=== PATIENT | male | born 2000 | race Caucasian/White ===

== ENCOUNTER 2024-06-04 20:01 | Emergency (ER) | payer BC ==
[2024-06-04 21:17] LABS: HEMATOCRIT 46.4 % (38.4-49.7); HEMOGLOBIN 16.8 g/dL (12.9-16.9); MEAN CORPUSCULAR HEMOGLOBIN 30.9 pg (31.6-35.5); MEAN CORPUSCULAR HGB CONC 36.2 g/dL (31.6-35.5); MEAN CORPUSCULAR VOLUME 85.5 fL (81.4-99.0); RED BLOOD CELL COUNT 5.43 M/uL (4.14-5.76); WHITE BLOOD CELL COUNT,WBC 9.6 K/uL (3.2-11.0)
[2024-06-04 21:24] LABS: APPEARANCE,URINE CLEAR (CLEAR); BILIRUBIN,URINE SMALL (NEGATIVE); COLOR,URINE YELLOW (YELLOW); GLUCOSE,URINE NEGATIVE (NEGATIVE); KETONES,URINE >=160 mg/dL (NEGATIVE); LEUKOCYTE ESTERASE,URINE NEGATIVE (NEGATIVE); NITRITE,URINE NEGATIVE (NEGATIVE); OCCULT BLOOD,URINE TRACE-INTACT (NEGATIVE); PH,URINE 5.5 (5.0-8.0); PROTEIN,URINE TRACE mg/dL (NEGATIVE); UROBILINOGEN,URINE 0.2 EU/dL (0.2-1.0)
[2024-06-04 21:29] LABS: RBC,URINE 0-5 (0-5); WBC,URINE 0-5 (0-5)
[2024-06-04 21:30] LABS: AMORPHOUS SEDIMENT,URINE NOT SEEN; BACTERIA,URINE FEW; EPITHELIAL CELLS,URINE RARE; MUCUS,URINE MODERATE
[2024-06-04] MEDS: Ondansetron 4 MG Tab.DIS PO ONE (21:41)
[2024-06-04] MEDS: Prochlorperazine 10 MG/2 ML SDV IVPUSH ONE (22:11)
[2024-06-04] MEDS: Methocarbamol 500 MG Tab PO ONE (22:55)
[2024-06-05] MEDS: Glycerin 2.1 GM Supp RECTAL ONE (00:27)
== END 2024-06-05 00:29 | disposition home or self-care (01) ==
LOC: JP.ED 20:01
DX: K59.00 Constipation, unspecified (principal); R11.2 Nausea with vomiting, unspecified; F17.210 Nicotine dependence, cigarettes, uncomplicated; Z88.0 Allergy status to penicillin
CPT/HCPCS: 36415; 74018; 81001; 85027; 96374; 99283; 99284; A9270; J0780; Q0162